=== PATIENT | male | born 1970 | race Caucasian/White ===

== ENCOUNTER 2020-08-17 06:19 | Inpatient (IN) | payer OTHER ==
[~2020-08-17] VITALS: Ht 177.8 cm; Wt 79.4 kg
[2020-08-17] MEDS ORDERED: TYLENOL325 MG PO (07:58)
--- NOTE | 2020-08-17 19:37 | NUR ---
[address]15 [facility]AM[facility] HERE TO GET PT
[2020-08-18 06:16] LABS: HEMOGLOBIN 14.3 gm/dl (14.0-17.5); RED BLOOD COUNT 4.54 M/UL (4.20-5.50); WHITE BLOOD COUNT 11.6 K/UL (4.5-11.0)
[2020-08-18 06:54] LABS: BUN/CREATININE RATIO 14 (0-10)
[2020-08-18] MEDS ORDERED: ATORVASTATIN CA40 MG PO (09:08)
[2020-08-18] MEDS ORDERED: NITROGLYCERIN0.4 MG SL (09:08)
[2020-08-19] MEDS ORDERED: CARVEDILOL3.125 MG PO (09:01)
[2020-08-19] MEDS ORDERED: ATORVASTATIN CA20 MG PO (09:01)
[2020-08-19] MEDS ORDERED: BRILINTA 90 MG90 MG PO (09:01)
[2020-08-19] MEDS ORDERED: ASPIRIN EC81 MG PO (09:01)
[2020-08-19 09:07] LABS: HEMOGLOBIN 15.5 gm/dl (14.0-17.5); RED BLOOD COUNT 4.83 M/UL (4.20-5.50); WHITE BLOOD COUNT 11.8 K/UL (4.5-11.0)
[2020-08-19 09:42] LABS: BUN/CREATININE RATIO 17 (0-10)
== END 2020-08-19 14:18 | disposition home or self-care (01) | DRG 247 ==
LOC: PROG CARE 06:19 → CCU 07:39 → PROG CARE 07:39 → CCU 07:40 → PROG CARE 08-18 16:32
PROVIDERS: Internal Medicine; Internal Medicine Interventional Cardiology; ADMIT Internal Medicine
PROC: 4A023N7 Measurement of Cardiac Sampling and Pressure, Left Heart, Percutaneous Approach (ICD-10-PCS; principal; 2020-08-17)
PROC: 027035Z Dilation of Coronary Artery, One Artery with Two Drug-eluting Intraluminal Devices, Percutaneous Approach (ICD-10-PCS; 2020-08-17)
PROC: B211YZZ Fluoroscopy of Multiple Coronary Arteries using Other Contrast (ICD-10-PCS; 2020-08-17)
PROC: B215YZZ Fluoroscopy of Left Heart using Other Contrast (ICD-10-PCS; 2020-08-17)
PROC: B41FYZZ Fluoroscopy of Right Lower Extremity Arteries using Other Contrast (ICD-10-PCS; 2020-08-17)
DX: I21.4 Non-ST elevation (NSTEMI) myocardial infarction (principal); E78.5 Hyperlipidemia, unspecified; I10 Essential (primary) hypertension; I25.110 Atherosclerotic heart disease of native coronary artery with unstable angina pectoris; Z82.49 Family history of ischemic heart disease and other diseases of the circulatory system; Z87.442 Personal history of urinary calculi; Z79.82 Long term (current) use of aspirin
CPT/HCPCS: 36415; 80048; 80053; 80061; 82550; 82553; 83036; 83735; 83874; 84484; 85025; 85347; 93005; 99152; 99153; C1725; C1760; C1769; C1874; C1887; C9600; C9601; J1644; J2250; J3010; J7030; Q9967